=== PATIENT | female | born 1980 | race Caucasian/White ===

== ENCOUNTER 2018-03-01 22:35 | Emergency (ER) | payer OTHER ==
[~2018-03-01] VITALS: Ht 167.6 cm; Wt 136.1 kg
[2018-03-01] MEDS ORDERED: KEFLEX500 M1 PO (23:17)
[2018-03-01 23:42] VITALS: BP 128/78
== END 2018-03-01 23:43 | disposition home or self-care (01) ==
LOC: ER 22:35
DX: T24.201A Burn of second degree of unspecified site of right lower limb, except ankle and foot, initial encounter (principal); L08.89 Other specified local infections of the skin and subcutaneous tissue; Z88.5 Allergy status to narcotic agent; F41.9 Anxiety disorder, unspecified; X08.8XXA Exposure to other specified smoke, fire and flames, initial encounter; Y93.89 Activity, other specified; Y92.89 Other specified places as the place of occurrence of the external cause; Y99.8 Other external cause status